=== PATIENT | female | born 1980 | race Two or more races ===

== ENCOUNTER 2023-02-17 11:34 | Emergency (ER) | payer MEDICAID ==
[~2023-02-17] VITALS: Ht 154.9 cm; Wt 68.7 kg
[2023-02-17 16:23] VITALS: BP 126/77
[2023-02-17 16:26] VITALS: PULSE 70; RESP 16; O2SAT 94
[2023-02-17] MEDS ORDERED: methylPREDNISolone SOD SUCC 125 MG/2 ML VL IM ONE (16:30)
[2023-02-17] MEDS ORDERED: KETOROLAC TROMETH 30 MG/ML 1ML VIAL IM ONE (16:30)
[2023-02-17] MEDS ORDERED: MONT-8 PO (17:14)
[2023-02-17] MEDS ORDERED: IBUP-1455 PO (17:14)
[2023-02-17] MEDS ORDERED: AMOX875T4 PO (17:14)
== END 2023-02-17 17:26 | disposition home or self-care (01) ==
LOC: ER 11:34
DX: J32.0 Chronic maxillary sinusitis (principal)
CPT/HCPCS: 96372; 99284; J1885; J2930